=== PATIENT | male | born 1950 | race Caucasian/White ===

== ENCOUNTER 2022-07-25 08:33 | Outpatient (OUT) | payer MEDICARE, OTHER, SELFPAY ==
[2022-07-25 09:06] LABS: Bilirubin Urine NEGATIVE (NEGATIVE); Blood Urine NEGATIVE (NEGATIVE); Clarity Urine CLEAR (CLEAR); Color Urine LT. YELLOW (YELLOW); Glucose Urine UA >=1000 mg/dL (NEGATIVE); Ketones Urine NEGATIVE (NEGATIVE); Leukocyte Esterase Urine NEGATIVE (NEGATIVE); Nitrite Urine NEGATIVE (NEGATIVE); Protein Urine NEGATIVE (NEG/TRACE); Urobilinogen Urine 0.2 EU/dL (0.2-1.0); pH Urine 5.5 (5.0-9.0)
[2022-07-25 09:16] LABS: RBC Urine NONE SEEN #/HPF (0-2); WBC Urine NONE SEEN #/HPF (NONE SEEN)
[2022-07-25 09:17] LABS: Bacteria Urine NONE SEEN #/HPF (NONE SEEN); Crystals Seen? None Seen #/HPF (None Seen); Mucus Urine NONE SEEN (NONE SEEN); Squamous Epithelial Cell Urine RARE #/LPF (NONE/RARE)
[2022-07-25 09:18] LABS: Cast Seen? NONE SEEN #/LPF (NONE SEEN)
[2022-07-25 09:19] LABS: Urine Culture Indicated NO
[2022-07-25 09:22] LABS: Basophils Percent Auto 0.6 % (0.2-2.0); Eosinophils Absolute Auto 0.2 10^3/uL (0.0-0.7); Eosinophils Percent Auto 3.5 % (0.9-7.0); Hematocrit 46.8 % (42.0-54.0); Hemoglobin 15.8 g/dL (14.0-18.0); Immature Granulocytes Abs Auto 0.02 10^3/uL (0.00-0.03); Immature Granulocytes Pct Auto 0.3 % (0.0-0.5); Lymphocytes Absolute Auto 1.8 10^3/uL (1.2-3.8); Lymphocytes Percent Auto 27.2 % (20.5-60.0); Mean Corpuscular HGB Conc 33.8 g/dL (29.9-35.2); Mean Corpuscular Hemoglobin 28.4 pg (25.9-34.0); Mean Corpuscular Volume 84.2 fL (80.0-94.0); Mean Platelet Volume 9.5 fL (9.5-13.5); Monocytes Absolute Auto 0.5 10^3/uL (0.3-0.8); Monocytes Percent Auto 7.9 % (1.7-12.0); Neutrophils Percent Auto 60.5 % (43.0-75.0); Platelet Count 220 10^3/uL (150-450); Red Blood Count 5.56 10^6/uL (4.70-6.10); Red Cell Distribution Width 13.3 % (11.0-15.0); White Blood Count 6.6 10^3/uL (4.0-11.0)
[2022-07-25 09:33] LABS: Microalbumin Urine Random <1.3 mg/dL (<=30.0)
[2022-07-25 10:07] LABS: Alanine Aminotransferase 29 U/L (16-63); Albumin Globulin Ratio 0.9; Albumin Level 3.8 g/dL (3.4-5.0); Alkaline Phosphatase 62 U/L (46-116); Anion Gap 12.7; Aspartate Amino Transferase 14 U/L (15-37); BUN Creatinine Ratio 19.2; Bilirubin Total 1.4 mg/dL (0.2-1.0); Calcium 9.2 mg/dL (8.5-10.1); Carbon Dioxide 27.6 mmol/L (21.0-32.0); Chloride 103 mmol/L (98-107); Chol HDL Ratio 2.9; Cholesterol 144 mg/dL (<=200); Estimated GFR (African America >60 (>=60); Estimated GFR (Non-African Ame >60 (>=60); Glucose 155 mg/dL (74-106); HDL Cholesterol 49 mg/dL (40-60); Potassium 4.3 mmol/L (3.5-5.1); Sodium 139 mmol/L (136-145); Total Protein 7.8 g/dL (6.4-8.2); Triglycerides 120 mg/dL (<=150)
[2022-07-25 10:27] LABS: Estimated Average Glucose 194 mg/dL; Glycohemoglobin A1C 8.4 % (4.5-6.2)
== END 2022-07-25 08:34 ==
PROVIDERS: PCP Nurse Practitioner; Visit Provider Nurse Practitioner
DX: N40.1 Benign prostatic hyperplasia with lower urinary tract symptoms (principal); E78.2 Mixed hyperlipidemia; E11.9 Type 2 diabetes mellitus without complications
CPT/HCPCS: 36415; 80053; 80061; 81001; 82043; 83036; 84153; 85025; G0103

== ENCOUNTER 2023-03-13 10:33 | Outpatient (OUT) | payer MEDICARE, OTHER, SELFPAY ==
[2023-03-13 11:35] LABS: Estimated Average Glucose 177 mg/dL; Glycohemoglobin A1C 7.8 % (4.5-6.2)
[2023-03-13 12:16] LABS: Anion Gap 13.4; BUN Creatinine Ratio 14.1; Calcium 8.6 mg/dL (8.5-10.1); Carbon Dioxide 26.6 mmol/L (21.0-32.0); Chloride 104 mmol/L (98-107); Estimated GFR (African America >60 (>=60); Estimated GFR (Non-African Ame >60 (>=60); Glucose 195 mg/dL (74-106); Sodium 140 mmol/L (136-145)
== END 2023-03-13 10:34 | disposition home or self-care (01) ==
LOC: LAB 10:35
PROVIDERS: PCP Nurse Practitioner; Visit Provider Nurse Practitioner
DX: E11.319 Type 2 diabetes mellitus with unspecified diabetic retinopathy without macular edema (principal); Z79.4 Long term (current) use of insulin
CPT/HCPCS: 36415; 80048; 83036

== ENCOUNTER 2023-08-06 09:22 | Outpatient (OUT) | payer MEDICARE, OTHER, SELFPAY ==
--- OUTSIDE RECORDS SUMMARY | 2023-08-06 09:32 | XMS_ITS | CCD ---
Author Organization [facility] Inform ion Partnership [facility] Care Team Providers Care Verse Writer Name Role Phone MAYCO JUAREZRAJI BERNAL Referring Unavaila ble AICHHOLZ, CARTRIDGE ASSEMBLING MACHINE ADJUSTER HERMINIA Primary Care Unavailable AICHHOLZ, CARTRIDGE ASSEMBLING MACHINE ADJUSTER HERMINIA Admitting Unavailable DR RADHA MORGAN V Consulting Unavailable AICHHOLZ, CARTRIDGE ASSEMBLING MACHINE ADJUSTER HERMINIA Attending Unavailable AICHHOLZ, CARTRIDGE ASSEMBLING MACHINE ADJUSTER HERMINIA Consulting Unavailable AICHHOLZ, CARTRIDGE ASSEMBLING MACHINE ADJUSTER HERMINIA Primary Care Unavailable AICHHOLZ, CARTRIDGE ASSEMBLING MACHINE ADJUSTER HERMINIA Admitting Unavailable AICHHOLZ, CARTRIDGE ASSEMBLING MACHINE ADJUSTER HERMINIA Attending Unavailable AICHHOLZ, CARTRIDGE ASSEMBLING MACHINE ADJUSTER HERMINIA Consulting Unavailable AICHHOLZ, CARTRIDGE ASSEMBLING MACHINE ADJUSTER HERMINIA Consulting Unavailable AICHHOLZ, CARTRIDGE ASSEMBLING MACHINE ADJUSTER HERMINIA Primary Care Unavailable AICHHOLZ, CARTRIDGE ASSEMBLING MACHINE ADJUSTER HERMINIA Admitting Unavailable AICHHOLZ, CARTRIDGE ASSEMBLING MACHINE ADJUSTER HERMINIA Attending Unavailable Piotr KYLE, Lion Lea Attending Unavailab eduin Guevara MD, Leslie Dorantes Primary Care Unavailab eduin Mcnair MD, Olu Primary Care Provider [phone] AICHHOLZ, HERMINIA Attending Unavailable AICHHOLZ, HERMINIA Attending Unavailable Allergies Allergy Classification Reported Allergen(s) Allergy Type Date of Onset Reaction(s) Facility (1 source) Doxycycline Drug Allergy 02-18-2023 [facility] Medications Current Medications Medication Drug Class(es) Dates Sig (Normalized) Sig (Original) aspirin 81 mg delayed release oral tablet (1 source) Platelet Aggregation Inhibitor, Nonsteroidal Anti-inflammatory Drug take 1 tablet by mouth in the morning aspirin (ASPIR) 81 MG EC tablet Take 1 tablet by mouth in the morning. 0 Active atorvastatin 20 mg oral tablet (1 source) HMG-CoA Reductase Inhibitor take 1 tablet by mouth once daily atorvastatin (Lipitor) 20 MG tablet Take 1 tablet by mouth 1 (one) time each day at the same time 0 Active Continuous Blood Gluc Sensor (Dexcom G6 Sensor) [facility] [place] (1 source) Start: 03-11-2023 End: 04-10-2023 Continuous Blood Gluc Sensor (Dexcom G6 Sensor) [facility] [place] Indications: Type 2 diabetes mellitus with retinopathy, with long-term current use of insulin, macular edema presence unspecified, unspecified laterality, unspecified retinopathy severity (CMS/HCC) 1 Device by Other route Daily as needed (blood sugar checks as directed) 3 each 12 03/11/2023 04/10/2023 Active Continuous Blood Gluc Transmit (Dexcom G6 transmitter) misc (1 source) Start: 01-07-2023 Continuous Blood Gluc Transmit (Dexcom G6 transmitter) [facility] [place] Indications: Type 2 diabetes mellitus with unspecified complications (CMS/HCC) Transmitter for 90 days use 1 each 4 01/07/2023 Active dapagliflozin 10 mg oral tablet (1 source) Sodium-Glucose Cotransporter 2 Inhibitor take 1 tablet by mouth in the morning dapagliflozin (Farxiga) 10 MG Take 1 tablet by mouth in the morning. 0 Active 0.5 ml dulaglutide 1.5 mg/ml auto-injector (1 source) GLP-1 Receptor Agonist End: 03-20-2023 dulaglutide (Trulicity) 0.75 MG/0.5ML solution pen-injector Inject 1 each under the skin 1 (one) time per week 0 03/20/2023 Discontinued (Ineffective) dulaglutide (Trulicity) 3 MG/0.5ML solution pen-injector (1 source) inject 3 mg by subcutaneous injection every week dulaglutide (Trulicity) 3 MG/0.5ML solution pen-injector Indications: Type 2 Diabetes Mellitus Inject 3 mg under the skin 1 (one) time per week 0 Active fluticasone propionate 0.05 mg/actuat metered dose nasal spray (1 source) Corticosteroid take 2 spray(s) nasal route in the morning fluticasone (Flonase) 50 MCG/ACT nasal spray Administer 2 sprays into each nostril in the morning. 0 Active ibuprofen 600 mg oral tablet (1 source) Nonsteroidal Anti-inflammatory Drug Start: 02-04-2023 End: 05-05-2023 take 1 tablet by mouth every eight hours for pain ibuprofen 600 MG tablet Indications: Other chronic pain Take 1 tablet (600 mg) by mouth every 8 (eight) hours if needed for mild pain Take with food 270 tablet 0 02/04/2023 05/05/2023 Active 3 ml insulin glargine 100 unt/ml pen injector (1 source) Insulin Analog Start: 01-07-2023 End: 04-07-2023 inject 45 [IU] by subcutaneous injection in the morning insulin glargine (Lantus SoloStar) 100 UNIT/ML pen Indications: Type 2 diabetes mellitus with unspecified complications (CMS/HCC) Inject 45 Units under the skin in the morning and 45 Units before bedtime. 27 each 1 01/07/2023 04/07/2023 Active losartan potassium 50 mg oral tablet (1 source) Angiotensin 2 Receptor Rodriguez take 1 tablet by mouth once daily losartan (Cozaar) 50 MG tablet Take 1 tablet by mouth 1 (one) time each day at the same time 0 Active pantoprazole 40 mg delayed release oral tablet (1 source) Proton Pump Inhibitor take 1 tablet by mouth once daily Protonix 40 MG EC tablet Take 1 tablet by mouth 1 (one) time each day at the same time 0 Active tamsulosin hydrochloride 0.4 mg oral capsule (1 source) alpha-Adrenergic Rodriguez Start: 02-01-2023 End: 05-02-2023 take 2 capsules by mouth every twenty-four hours at bedtime tamsulosin (Flomax) 0.4 MG 24 hr capsule Indications: Benign prostatic hyperplasia with urinary frequency Take 2 capsules (0.8 mg) by mouth at bedtime 180 capsule 1 02/01/2023 05/02/2023 Active Problems Active Problems Problem Classification Problem Date Documented Da te Episodic/Chronic Conditions associated with dizziness or vertigo (1 source) Dizziness and giddiness; Translations: [DIZZINESS AND GIDDINESS] Onset: 05-15-2022 Episodic Diabetes mellitus with complications (6 sources) Type 2 diabetes mellitus with unspecified complications; Translations: [Type 2 diabetes mellitus with hyperglycemia] Onset: 05-24-2021 Chronic Diabetes mellitus without complication (1 source) Type 2 diabetes mellitus without complications; Translations: [TYPE 2 DM WITHOUT COMPLICATIONS] Onset: 05-15-2022 Chronic Disorders of lipid metabolism (1 source) Mixed hyperlipidemia; Translations: [MIXED HYPERLIPIDEMIA] Onset: 05-15-2022 Chronic Esophageal disorders (1 source) Gastro-esophageal reflux disease with esophagitis; Translations: [GERD with esophagitis] Onset: 02-26-2023 02-26-2023 Chronic Essential hypertension (5 sources) Essential (primary) hypertension; Translations: [Essential hypertension] Onset: 05-09-2022 Chronic Hyperplasia of prostate (1 source) Urinary frequency due to benign prostatic hypertrophy; Translations: [Benign prostatic hyperplasia with lower urinary tract symptoms] Onset: 02-01-2023 02-01-2023 Chronic Other nervous system disorders (1 source) Chronic pain; Translations: [Other chronic pain] Onset: 02-04-2023 02-04-2023 Chronic Other nutritional; endocrine; and metabolic disorders (1 source) Body mass index 30+ - obesity; Translations: [Body mass index (BMI) 33.0-33.9, adult] Onset: 02-26-2023 02-26-2023 Chronic Other upper respiratory infections (4 sources) Chronic sinusitis, unspecified; Translations: [CHRONIC SINUSITIS UNSPECIFIED] Onset: 05-21-2021 Chronic Past or Other Problems Problem Classification Problem Date Documented Da te Episodic/Chronic Other aftercare (1 source) snf (current) use of insulin; Translations: [SKILLED NURSING CURRENT USE OF INSULIN] Onset: 12-02-2021 Episodic Other screening for suspected conditions (not mental disorders or infectious disease) (1 source) Encounter for screening for malignant neoplasm of prostate; Translations: [ENC SCREEN MALIG NEOPLASM PROSTATE] Onset: 05-24-2021 Episodic Results Test Name Value Interpretation Reference Range Facility US CAROTID ART BILon 023 US CAROTID ART MAURICE EXAMINATION: US CAROTID ART MAURICE HISTORY: Essential hypertension COMPARISON: No relevant comparison available. TECHNIQUE: Duplex Doppler ultrasound analysis of carotid and vertebral arteries. . Bilateral carotid arterial duplex examination was performed using B-mode, color flow and spectral analysis. Carotid stenosis is reported according to validated velocity parameters, similar to NASCET criteria. FINDINGS: RIGHT CAROTID ARTERY Mild atherosclerotic plaque Subclavian: PSV: 210.7 cm/s cm/s EDV: 10.3 cm/s cm/s CCA: Prox: PSV: 146.0 cm/s cm/s EDV: 23.3 cm/s cm/s Mid: PSV: 109.2 cm/s cm/s EDV: 17.3 cm/s cm/s Distal: PSV: 100.8 cm/s cm/s EDV: 17.3 cm/s cm/s BULB: PSV: 47.2 cm/s cm/s EDV: 10.0 cm/s cm/s ICA: Prox: PSV: 87.5 cm/s cm/s EDV: 19.7 cm/s cm/s Mid: PSV: 101.6 cm/s cm/s EDV: 20.8 cm/s cm/s Distal: PSV: 101.5 cm/s cm/s EDV: 28.9 cm/s cm/s ECA: PSV: 139.0 cm/s cm/s EDV: 0.0 cm/s cm/s VERTEBRAL: PSV: 44.9 cm/s cm/s EDV: 13.1 cm/s cm/s ICA/CCA ratio: PSV: 0.7 EDV: 0.9 LEFT CAROTID ARTERY Mild atherosclerotic plaque Subclavian: PSV: 164.1 cm/s cm/s EDV: 0.0 cm/s CCA: Prox: PSV: 158.4 cm/s cm/s EDV: 22.0 cm/s Mid: PSV: 138.9 cm/s cm/s EDV: 19.2 cm/s Distal: PSV: 102.7 cm/s cm/s EDV: 19.2 cm/s BULB: PSV: 151.0 cm/s cm/s EDV: 20.9 cm/s ICA: Prox: PSV: 150.1 cm/s cm/s EDV: 26.9 cm/s Mid: PSV: 90.3 cm/s cm/s EDV: 22.4 cm/s Distal: PSV: 93.5 cm/s cm/s EDV: 24.1 cm/s ECA: PSV: 162.4 cm/s cm/s EDV: 13.7 cm/s VERTEBRAL: PSV: 55.5 cm/s cm/s EDV: 12.8 cm/s ICA/CCA ratio: PSV: 1.0 EDV: 0.9 IMPRESSION: 0-49% flow stenosis bilateral internal carotid arteries Spectral Doppler US Thresholds (Reference: Victorino EG, et al. Radiology 2000; 214:247-252) Stenosis (%) PSV (cm/sec) VICA/VCCA 0-49 <150 <2.5 50-69 150-225 2.5-4.0 >70 >225 >4.0 Electronically authenticated by: RADHA MORGAN Date: 2022-05-09 15:35 Normal [facility] GLYCOHEMOGLOBIN A1Con 2021 ADA RECOMMENDATION SEE BELOW Normal [facility] Comment on above: Result Comment: ADA RECOMMENDED LIMIT 4.0 - 6.0 ADA THERAPEUTIC TARGET < 7.0 ACTION SUGGESTED > 7.0 Performed By: #### A 1C #### [facility] [address] [place] [address] Dr. Mau Alberts Glucose [Mass/Vol] 180 mg/dL Normal [facility] Comment on above: Performed By: #### A 1C #### [facility] [address] [place] [address] Dr. Mau Alberts HbA1c (Bld) [Mass fraction] 7.9 % Critically high 4.5-6.2 [facility] Comment on above: Performed By: #### A 1C #### [facility] [address] [place] [address] Dr. Mau Alberts PROF 14(COMP METB)on 022 Albumin [Mass/Vol] 3.6 g/dL Normal 3.4-5.0 [facility] Comment on above: Performed By: #### C MP #### [facility] [address] [place] [address] Dr. Mau Alberts Albumin/Globulin [Mass ratio] 0.9 {ratio} Normal [facility] Comment on above: Performed By: #### C MP #### [facility] [address] [place] [address] Dr. Mau Alberts ALP [Catalytic activity/Vol] 63 U/L Normal 46-116 [facility] Comment on above: Performed By: #### C MP #### [facility] [address] [place] [address] Dr. Mau Alberts ALT [Catalytic activity/Vol] 30 U/L Normal 16-63 [facility] Comment on above: Performed By: #### C MP #### [facility] [address] [place] [address] Dr. Mau Alberts Anion gap [Moles/Vol] 9.2 mmol/L Normal [facility] Comment on above: Performed By: #### C MP #### [facility] [address] [place] [address] Dr. Mau Alberts AST [Catalytic activity/Vol] 20 U/L Normal 15-37 [facility] Comment on above: Performed By: #### C MP #### [facility] [address] [place] [address] Dr. Mau Alberts Bilirubin [Mass/Vol] 0.9 mg/dL Normal 0.2-1.0 [facility] Comment on above: Performed By: #### C MP #### [facility] [address] [place] [address] Dr. Mau Alberts Calcium [Mass/Vol] 8.9 mg/dL Normal 8.5-10.1 [facility] Comment on above: Performed By: #### C MP #### [facility] [address] [place] [address] Dr. Mau Alberts Chloride [Moles/Vol] 104 mmol/L Normal 98-107 [facility] Comment on above: Performed By: #### C MP #### [facility] [address] [place] [address] Dr. Mau Alberts CO2 [Moles/Vol] 29.2 mmol/L Normal 21.0-32.0 [facility] Comment on above: Performed By: #### C MP #### [facility] [address] [place] [address] Dr. Mau Alberts Creatinine [Mass/Vol] 0.93 mg/dL Normal 0.70-1.30 [facility] Comment on above: Performed By: #### C MP #### [facility] [address] [place] [address] Dr. Mau Alberts EGFR-AF FAROESE >60 Normal >=60 [facility] Comment on above: Performed By: #### C MP #### [facility] [address] [place] [address] Dr. Mau Alberts EGFR-NON AF FAROESE >60 Normal >=60 [facility] Comment on above: Performed By: #### C MP #### [facility] [address] [address] [address] Mau Alberts Globulin (S) [Mass/Vol] 3.8 g/dL Normal [facility] Comment on above: Performed By: #### C MP #### [facility] [address] [place] [address] Dr. Mau Alberts Glucose [Mass/Vol] 161 mg/dL Critically high 74-106 [facility] Comment on above: Performed By: #### C MP #### [facility] [address] [place] [address] Dr. Mau Alberts Potassium [Moles/Vol] 4.4 mmol/L Normal 3.5-5.1 [facility] Comment on above: Performed By: #### C MP #### [facility] [address] [place] [address] Dr. Mau Alberts Protein [Mass/Vol] 7.4 g/dL Normal 6.4-8.2 [facility] Comment on above: Performed By: #### C MP #### [facility] [address] [place] [address] Dr. Mau Alberts Sodium [Moles/Vol] 138 mmol/L Normal 136-145 [facility] Comment on above: Performed By: #### C MP #### [facility] [address] [place] [address] Dr. Mau Alberts Urea nitrogen [Mass/Vol] 14.0 mg/dL Normal 7.0-18.0 [facility] Comment on above: Performed By: #### C MP #### [facility] [address] [place] [address] Dr. Mau Alberts Urea nitrogen/Creatinine [Mass ratio] 15.1 mg/mg Normal [facility] Comment on above: Performed By: #### C MP #### [facility] [address] [place] [address] Dr. Mau Alberts CBC AUTO DIFFon 05-21-2021 BASO # 0.0 103/ul Normal 0.0-0.1 [facility] Comment on above: Performed By: #### C BC #### [facility] [address] [place] [address] Dr. Mau Alberts Basophils/100 WBC (Bld) 0.4 % Normal 0.2-2.0 [facility] Comment on above: Performed By: #### C BC #### [facility] [address] [place] [address] Dr. Mau Alberts EO # 0.2 103/ul Normal 0.0-0.7 [facility] Comment on above: Performed By: #### C BC #### [facility] [address] [place] [address] Dr. Mau Alberts Eosinophils/100 WBC (Bld) 3.2 % Normal 0.9-7.0 [facility] Comment on above: Performed By: #### C BC #### [facility] [address] [place] [address] Dr. Mau Alberts Erythrocyte distribution width (RBC) [Ratio] 13.0 % Normal 11.0-15.0 [facility] Comment on above: Performed By: #### C BC #### [facility] [address] [place] [address] Dr. Mau Alberts Hematocrit (Bld) [Volume fraction] 47.1 % Normal 42.0-54.0 [facility] Comment on above: Performed By: #### C BC #### [facility] [address] [place] [address] Dr. Mau Alberts Hemoglobin (Bld) [Mass/Vol] 15.1 g/dL Normal 14.0-18.0 [facility] Comment on above: Performed By: #### C BC #### [facility] [address] [place] [address] Dr. Mau Alberts IG # 0.02 10e3/ul Normal 0.00-0.03 [facility] Comment on above: Performed By: #### C BC #### [facility] [address] [place] [address] Dr. Mau Alberts IG % 0.3 % Normal 0.0-0.5 [facility] Comment on above: Performed By: #### C BC #### [facility] [address] [place] [address] Dr. Mau Alberts LYMPH # 2.0 103/ul Normal 1.2-3.8 [facility] Comment on above: Performed By: #### C BC #### [facility] [address] [place] [address] Dr. Mau Alberts Lymphocytes/100 WBC (Bld) 26.9 % Normal 20.5-60.0 [facility] Comment on above: Performed By: #### C BC #### [facility] [address] [place] [address] Dr. Mau Alberts MANUAL DIFF REQ NO Normal [facility] Comment on above: Performed By: #### C BC #### [facility] [address] [place] [address] Dr. Mau Alberts MCH (RBC) [Entitic mass] 28.1 pg Normal 25.9-34.0 [facility] Comment on above: Performed By: #### C BC #### [facility] [address] [place] [address] Dr. Mau Alberts MCHC (RBC) [Mass/Vol] 32.1 g/dL Normal 29.9-35.2 [facility] Comment on above: Performed By: #### C BC #### [facility] [address] [place] [address] Dr. Mau Alberts MCV (RBC) [Entitic vol] 87.7 fL Normal 80.0-94.0 [facility] Comment on above: Performed By: #### C BC #### [facility] [address] [place] [address] Dr. Mau Alberts MONO # 0.5 103/ul Normal 0.3-0.8 [facility] Comment on above: Performed By: #### C BC #### [facility] [address] [place] [address] Dr. Mau Alberts Monocytes/100 WBC (Bld) 7.0 % Normal 1.7-12.0 [facility] Comment on above: Performed By: #### C BC #### [facility] [address] [address] [address] Mau Alberts NEUT # 4.6 103/ul Normal 1.4-6.5 [facility] Comment on above: Performed By: #### C BC #### [facility] [address] [place] [address] Dr. Mau Alberts Neutrophils/100 WBC (Bld) 62.2 % Normal 43.0-75.0 [facility] Comment on above: Performed By: #### C BC #### [facility] [address] [place] [address] Dr. Mau Alberts Platelet mean volume (Bld) [Entitic vol] 10.2 fL Normal 9.5-13.5 [facility] Comment on above: Performed By: #### C BC #### [facility] [address] [place] [address] Dr. Mau Alberts PLT 215 103/ul Normal 150-450 [facility] Comment on above: Performed By: #### C BC #### [facility] [address] [place] [address] Dr. Mau Alberts RBC 5.37 106/ul Normal 4.70-6.10 [facility] Comment on above: Performed By: #### C BC #### [facility] [address] [place] [address] Dr. Mau Alberts WBC 7.4 103/ul Normal 4.0-11.0 [facility] Comment on above: Performed By: #### C BC #### [facility] [address] [place] [address] Dr. Mau Alberts GLYCOHEMOGLOBIN A1Con 2021 ADA RECOMMENDATION ADA THERAPEUTIC TARGET 6.0 - 7.0 ACTION SUGGESTED > 7.0 Normal [facility] Comment on above: Performed By: #### A 1C #### [facility] [address] [place] [address] Dr. Mau Alberts Glucose [Mass/Vol] 180 mg/dL Normal [facility] Comment on above: Performed By: #### A 1C #### [facility] [address] [place] [address] Dr. Mau Alberts HbA1c (Bld) [Mass fraction] 7.9 % Critically high <=6.0 [facility] Comment on above: Performed By: #### A 1C #### [facility] [address] [place] [address] Dr. Mau Alberts MICROALBUMIN, RAND URon 04- mALB <1.3 Normal <=30.0 [facility] Comment on above: Performed By: #### M ALBR #### [facility] [address] [place] [address] Dr. Mau Alberts PROF 14(COMP METB)on 022 Albumin [Mass/Vol] 3.8 g/dL Normal 3.4-5.0 [facility] Comment on above: Performed By: #### C MP #### [facility] [address] [place] [address] Dr. Mau Alberts Albumin/Globulin [Mass ratio] 1.1 {ratio} Normal [facility] Comment on above: Performed By: #### C MP #### [facility] [address] [place] [address] Dr. Mau Alberts ALP [Catalytic activity/Vol] 60 U/L Normal 46-116 [facility] Comment on above: Performed By: #### C MP #### [facility] [address] [place] [address] Dr. Mau Alberts ALT [Catalytic activity/Vol] 29 U/L Normal 16-63 [facility] Comment on above: Performed By: #### C MP #### [facility] [address] [place] [address] Dr. Mau Alberts Anion gap [Moles/Vol] 9.5 mmol/L Normal [facility] Comment on above: Performed By: #### C MP #### [facility] [address] [place] [address] Dr. Mau Alberts AST [Catalytic activity/Vol] 23 U/L Normal 15-37 [facility] Comment on above: Performed By: #### C MP #### [facility] [address] [place] [address] Dr. Mau Alberts Bilirubin [Mass/Vol] 1.7 mg/dL Critically high 0.2-1.3 [facility] Comment on above: Performed By: #### C MP #### [facility] [address] [address] [address] Mau Alberts Calcium [Mass/Vol] 8.5 mg/dL Normal 8.5-10.1 [facility] Comment on above: Performed By: #### C MP #### [facility] [address] [address] [address] Mau Alberts Chloride [Moles/Vol] 103 mmol/L Normal 98-107 [facility] Comment on above: Performed By: #### C MP #### [facility] [address] [address] [address] Mau Alberts CO2 [Moles/Vol] 30.7 mmol/L Critically high 22.0-30.0 [facility] Comment on above: Performed By: #### C MP #### [facility] [address] [address] [address] Mau Alberts Creatinine [Mass/Vol] 0.93 mg/dL Normal 0.66-1.25 [facility] Comment on above: Performed By: #### C MP #### [facility] [address] [place] [address] Dr. Mau Alberts EGFR-AF FAROESE >60 Normal >=60 [facility] Comment on above: Performed By: #### C MP #### [facility] [address] [address] [address] Mau Alberts EGFR-NON AF FAROESE >60 Normal >=60 [facility] Comment on above: Performed By: #### C MP #### [facility] [address] [address] [address] Mau Alberts Globulin (S) [Mass/Vol] 3.6 g/dL Normal [facility] Comment on above: Performed By: #### C MP #### [facility] [address] [address] [address] Mau Alberts Glucose [Mass/Vol] 124 mg/dL Critically high 74-106 [facility] Comment on above: Performed By: #### C MP #### [facility] [facility] [address] [address] [address] Mau Alberts Potassium [Moles/Vol] 4.2 mmol/L Normal 3.4-5.0 [facility] Comment on above: Performed By: #### C MP #### [facility] [address] [address] [address] Mau Alberts Protein [Mass/Vol] 7.4 g/dL Normal 6.1-8.2 [facility] Comment on above: Performed By: #### C MP #### [facility] [address] [address] [address] Mau Alberts Sodium [Moles/Vol] 139 mmol/L Normal 137-145 [facility] Comment on above: Performed By: #### C MP #### [facility] [address] [address] [address] Mau Alberts Urea nitrogen [Mass/Vol] 16.0 mg/dL Normal 7.0-18.0 [facility] Comment on above: Performed By: #### C MP #### [facility] [address] [address] [address] Mau Alberts Urea nitrogen/Creatinine [Mass ratio] 17.2 mg/mg Normal [facility] Comment on above: Performed By: #### C MP #### [facility] [address] [address] [address] Mau Alberts UA RANDOM W/MICROSCOPICon BACTERIA NONE SEEN Normal NONE SEEN [facility] Comment on above: Performed By: #### U AMIC #### [facility] [address] [address] [address] Mau Alberts Bilirubin Ql (U) Negative Normal NEGATIVE [facility] Comment on above: Performed By: #### U AMIC #### [facility] [address] [address] [address] Mau Alberts CAST NONE SEEN Normal NONE SEEN [facility] Comment on above: Performed By: #### U AMIC #### [facility] [address] [address] [address] Mau Alberts Clarity (U) CLEAR Normal CLEAR [facility] Comment on above: Performed By: #### U AMIC #### [facility] [address] [address] [address] Mau Alberts Color (U) YELLOW Normal YELLOW [facility] Comment on above: Performed By: #### U AMIC #### [facility] [address] [address] [address] Mau Alberts Crystals LM Nom (Urine sed) NONE SEEN Normal NONE SEEN [facility] Comment on above: Performed By: #### U AMIC #### [facility] [address] [address] [address] Mau Alberts Epithelial cells LM Ql (Urine sed) RARE Normal NONE SEEN /RARE [facility] Comment on above: Performed By: #### U AMIC #### [facility] [address] [place] [address] Dr. Mau Alberts Glucose Ql (U) >1000 Abnormal NEGATIVE [facility] Comment on above: Performed By: #### U AMIC #### [facility] [address] [place] [address] Dr. Mau Alberts Hemoglobin Ql (U) Negative Normal NEGATIVE [facility] Comment on above: Performed By: #### U AMIC #### [facility] [address] [place] [address] Dr. Mau Alberts Ketones Ql (U) Negative Normal NEGATIVE [facility] Comment on above: Performed By: #### U AMIC #### [facility] [address] [place] [address] Dr. Mau Alberts LEUKOCYTES Negative Normal NEGATIVE [facility] Comment on above: Performed By: #### U AMIC #### [facility] [address] [place] [address] Dr. Mau Alberts MUCOUS NONE SEEN Normal NONE SEEN [facility] Comment on above: Performed By: #### U AMIC #### [facility] [address] [address] [address] Mau Alberts Nitrite Ql (U) Negative Normal NEGATIVE [facility] Comment on above: Performed By: #### U AMIC #### [facility] [address] [address] [address] Mau Alberts pH (U) 6.0 [pH] Normal 5-9 [facility] Comment on above: Performed By: #### U AMIC #### [facility] [address] [address] [address] Mau Alberts RBC NONE SEEN Abnormal 0-2 [facility] Comment on above: Performed By: #### U AMIC #### [facility] [address] [address] [address] Mau Alberts SPEC GRAVITY 1.015 Normal 1.005-<=1.025 [facility] Comment on above: Performed By: #### U AMIC #### [facility] [address] [address] [address] Mau Alberts UA PROTEIN Negative Normal NEGATIVE/ TRACE [facility] Comment on above: Performed By: #### U AMIC #### [facility] [address] [place] [address] Dr. Mau Alberts Urobilinogen Qn (U) 0.2 {Britton'U}/dL Normal 0.2 - 1. 0 [facility] Comment on above: Performed By: #### U AMIC #### [facility] [address] [place] [address] Dr. Mau Alberts WBC NONE SEEN Normal NONE SEEN [facility] Comment on above: Performed By: #### U AMIC #### [facility] [address] [place] [address] Dr. Mau Alberts NM PET/CT SKULL-THIGH INITon 04-10-2018 NM PET/CT SKULL-THIGH INIT * * *Final Report* * * DATE OF EXAM: Apr 10 2018 11:29AM NRN [id number] - NM PET/CT SKULL-THIGH INIT / PROCEDURE REASON: [place] * * * * Physician Interpretation * * * * RESULT: WHOLE (OR REGIONAL) BODY PET-CT SCAN CLINICAL HISTORY: Positive colorectal cancer screening. ear pain. INDICATION: Initial treatment strategy. TECHNIQUE: PET-CT scan: Approximately 60 minutes following the IV administration of F-18 FDG (14.3 mCi of F-18 FDG), PET and non contrast CT images were acquired from the top of skull through proximal thigh. PET images were reconstructed with and without attenuation correction using attenuation coefficients. The blood glucose level before FDG injection is 131 mg/dL CT Radiation dose: Integrated Dose-length product (DLP) for this visit = 308 mGy*cm. CT Dose Reduction Employed: Automatic exposure control used (AED) COMPARISON: FDG PET-CT: None CORRELATION: None RESULTS: Head and Neck: No evidence of focal uptake to suggest FDG avid neoplastic process. Tiny bilateral cervical lymph nodes with minimal FDG uptake, likely benign. Symmetric uptake in the bilateral tonsil regions is probably physiological versus inflammatory process. Chest: No evidence of focal uptake to suggest FDG avid neoplastic process. Subcentimeter mediastinal, subcarinal and hilar lymph nodes with mild FDG uptake, probably benign. The largest is measuring 7 x 4 mm in the right paratracheal regions with Max SUV 3.3. There is 4 mm subpleural nodule in the right upper lobe, too small to characterize. Small area of atelectasis in the right upper lobe posteriorly. Left lower lobe atelectasis and scarring. Hiatal hernia. Abdomen and Pelvis: No evidence of focal uptake to suggest FDG avid neoplastic process. No significant anatomical abnormality to the limits of low dose noncontrast CT scan. Extremities/Skeleton : No evidence of focal uptake to suggest FDG avid neoplastic process. Degenerative arthritic changes. More obvious focal uptake in the left hip joint and the right ischium is compatible with tendinitis. IMPRESSION: 1. HEAD and NECK: No evidence of focal uptake to suggest FDG avid neoplastic process.. 2. CHEST: No evidence of focal uptake to suggest FDG avid neoplastic process. Tiny right lung nodule. 3. ABDOMEN/PELVIS: No evidence of focal uptake to suggest FDG avid neoplastic process.. 4. EXTREMITIES/SKELETON : No evidence of focal uptake to suggest FDG avid neoplastic process.. Transcribe Date/Time: Apr 10 2018 1:16P Dictated by: DEEPIKA CHAUDHRY MD This examination was interpreted and the report reviewed and electronically signed by: DEEPIKA CHAUDHRY MD on Apr 10 2018 1:28PM EST Thank you for allowing us to participate in the care of your patient. Should there be any questions regarding this interpretation, please call [phone]. If you are unable to reach us at the number above, please feel free to contact [facility] at [phone]. [id number] CN Normal [facility] PROGRESSon 04-10-2018 Protein mass conc HNO ID: [id number] Author: Thao Carty Service: (none) Author Type: (none) Type: Progress Notes Filed: 04/10/2018 10:40 AM Note Text: RADIOLOGY SERVICE PROGRESS NOTE SERVICE DATE: 04/10/2018 SERVICE TIME: 9:54 AM PATIENT IDENTITY VERIFICATION COMPLETED USING TWO (2) METHODS: Patient confirmed name and Date of verbally. PATIENT GENDER DATA: .male : No ALLERGIES: Reviewed and unchanged MEDICATIONS REVIEWED: No PATIENT RELEVANT IMPLANT DATA REVIEWED: Not Applicable CREATININE: No results found for: CREAT, EGFROTH, EGFRAA P.O.C.T. RESULTS: POC done: Yes, See Lab Tab April 10, [address] PERFORMED: No IV SITE: Ambulatory: A peripheral IV was started in the Left antecubital site with a Angio cath: 22 gauge. POST EXAM PIV STATUS: Discontinued PROCEDURE TYPE: NM INJECT: PET/CT HEAD, NECK, BODY SCAN. 14.3 mCi F18 FDG. No other medications given.. ADMINISTRATION TIME: 0953 PATIENT DISCHARGED TO: Ambulatory patient, left NM department area. Thao Carty A Diagnostic radioactive procedure has taken place, with no further precautions necessary other than routine body substance precautions. More information regarding radiation safety can be found using this link: [email or web address] SIGNATURE: Nisreen Berkowitz LPN PATIENT NAME: Hector Florian DATE: April 10, 2018 TIME: 9:54 AM PAGER/CONTACT #: Normal [facility] MR-MRI IACS WO/W CON IMPORTo n 03-27-2018 MR-MRI IACS WO/W CON IMPORT Images were obtained outside of [facility] [id number] CN Normal [facility] Encounters Encounter Date Encounter Type Care Provider Facility Start: 06-02-2023 End: 06-02-2023 ambulatory HERMINIA FARFAN Not Available Start: 03-20-2023 Refill Herminia Alfredoannie INSURANCE COMMISSIONER Work Phone: [facility] Start: 02-26-2023 End: 02-26-2023 ambulatory HERMINIA FARFAN Not Available Start: 12-24-2022 End: 12-25-2022 ambulatory Lion Saldaña MD Facility:[facility] Start: 05-09-2022 End: 05-10-2022 ambulatory JASON FARFAN Facility:[facility] Start: 11-28-2021 End: 11-29-2021 ambulatory JASON FARFAN Facility:[facility] Start: 05-21-2021 End: 05-22-2021 ambulatory JASON FARFAN Facility:[facility] Start: 04-10-2018 End: 04-16-2018 Patient encounter procedure ODALIS JUAREZ [facility] Procedures Date Procedure Procedure Detail Performing Clinician Start: 05-21-2021 PSA screening JASON FARFAN Comment on above: Performed By: #### P [facility] #### [facility] [address] [place] [address] Dr. Mau Alberts Plan of Treatment Date Care Activity Detail Author Start: 04-08-2025 Screening for malign ant neoplasm of colon [facility] Start: 07-26-2023 Urine screening for protein Diabetes: Urine Protein Screening [facility] Start: 06-02-2023 End: 06-02-2023 Patient encounter procedure 06/02/2023 9:40 AM EDT Office Visit [facility] [address] [place] [address] Herminia Farfan NP [address] [place] [id number] [facility] Start: 04-19-2023 Glaucoma screening Diabetes: R etinopathy Screening [facility] Start: 10-25-2022 Hemoglobin A1c measurement Diabetes: Hemoglobin A1C [facility] Start: 1950 Screening for malign ant neoplasm of colon [facility] Immunizations Immunization Date Immunization Notes Care Provider Miky lisbeth 11-20-2022 influenza virus vacc ine, unspecified formulation Herminia Farfan NP Work Phone: [facility] Payers Date Payer Category Payer Medicare MEDICARE MEDICAR E RAILROAD [id number] 2017-Present [employer] MEDICARE [address] [address] [place] [address] Medicare [id number] 2017 Unknown 1959 Medicare [id number] 1959 Unknown [id number] 1952 Unknown [id number] 1952 Unknown [id number] 1952 Unknown [id number] 1952 Unknown [id number] 1952 Unknown [id number] 1952 Unknown [id number] Social History Date Type Detail Facility Start: 02-18-2023 Tobacco smoking status MOIS Ex-smoke r [facility] End: 02-11-1988 History of tobacco use Current smoker [facility] End: 02-11-1988 History of tobacco use Cigarette Smoker [facility] Start: 02-26-2023 Alcohol intake Current drinke r of alcohol (finding) [facility] Start: 02-20-2023 End: 02-26-2023 History of Social function [facility] Start: 02-20-2023 End: 02-26-2023 Humiliation, Afraid, Rape, and Kick questionnaire [HARK] [facility] Within the last year , have you been afraid of your partner or ex-partner? No [facility] How often do you att end bahai or jehovah's witness services? Patient refused [facility] Are you now , , , , never or living with a partner? [facility] How often to you hav e a drink containing alcohol? Monthly or less [facility] How many standard dr inks containing alcohol do you have on a typical day? 1 or 2 [facility] Do you feel stress - tense, restless, nervous, or anxious, or unable to sleep at night because your mind is troubled all the time - these days [OSQ] Not at all [facility] (I/We) worried wheth er (my/our) food would run out before (I/we) got money to buy more. Never true [facility] Start: 02-18-2023 Alcohol Comment caffeine 1-2 c ups per day [facility] Start: 1950 Sex Assigned At Male [facility] Start: 02-20-2023 Gender identity Identifies as male gender (finding) [facility] Medical Equipment Procedure Code Equipment Code Equipment Origin al Text Equipment Identifier Dates 1 each by Other route if needed (for checking blood sugars) [id number] Start: 03-11-2023 End: 06-19-2023 Summary Purpose Family History No Family History Records FoundNo Family History Records FoundNo Family History Records FoundNo Family History Records Found Advance Directives No Advanced Directives Records FoundNo Advanced Directives Records FoundNo Advanced Directives Records FoundNo Advanced Directives Records Found Additional Source Comments (unrecognized sect ion and content) No Status Records FoundNo Status Records FoundNo Status Records FoundNo Status Records Found INFORMATION SOURCE (unrecogn ized section and content) DATE CREATED AUTHOR 04/17/2018 [facility] DATE CREATED AUTHOR AUTHOR'S ORGANIZ ATION 05/17/2022 [facility] DATE CREATED AUTHOR AUTHOR'S ORGANIZ ATION 03/03/2023 [facility] DATE CREATED AUTHOR AUTHOR'S ORGANIZ ATION 06/02/2023 [facility] [employer] Care Teams (unrecognized sec tion and content) Verse Writer Relationship Specialty Start Date End Date Olu Mcnair MD PCP - General Family Medicine 07/31/22 FOR RECORDS PERTAINING TO PATIENTS WHO ARE OR HAVE BEEN ENROLLED IN A CHEMICAL DEPENDENCY/SUBSTANCEABUSE PROGRAM, SOME INFORMATION MAY BE OMITTED. This clinical summary was aggregated from multiple sources. Caution should be exercised in using it in the provision of clinical care. This summary normalizes information from multiple sources, and as a consequence, information in this document may materially change the coding, format and clinical context of patient data. In addition, data may be omitted in some cases. CLINICAL DECISIONS SHOULD BE BASED ON THE PRIMARY CLINICAL RECORDS. [email or web address]. provides no warranty or guarantee of the accuracy or completeness of information in this document.
[2023-08-06 10:09] LABS: Bilirubin Urine NEGATIVE (NEGATIVE); Blood Urine NEGATIVE (NEGATIVE); Clarity Urine CLEAR (CLEAR); Color Urine LT. YELLOW (YELLOW); Glucose Urine UA >=1000 mg/dL (NEGATIVE); Ketones Urine NEGATIVE (NEGATIVE); Leukocyte Esterase Urine NEGATIVE (NEGATIVE); Nitrite Urine NEGATIVE (NEGATIVE); Protein Urine NEGATIVE (NEG/TRACE); Urobilinogen Urine 0.2 EU/dL (0.2-1.0)
[2023-08-06 10:14] LABS: Basophils Absolute Auto 0.1 10^3/uL (0.0-0.1); Basophils Percent Auto 0.7 % (0.2-2.0); Eosinophils Absolute Auto 0.3 10^3/uL (0.0-0.7); Eosinophils Percent Auto 3.7 % (0.9-7.0); Hematocrit 44.5 % (42.0-54.0); Hemoglobin 15.2 g/dL (14.0-18.0); Immature Granulocytes Abs Auto 0.01 10^3/uL (0.00-0.03); Immature Granulocytes Pct Auto 0.1 % (0.0-0.5); Lymphocytes Percent Auto 30.4 % (20.5-60.0); Mean Corpuscular HGB Conc 34.2 g/dL (29.9-35.2); Mean Corpuscular Hemoglobin 28.5 pg (25.9-34.0); Mean Corpuscular Volume 83.3 fL (80.0-94.0); Mean Platelet Volume 9.6 fL (9.5-13.5); Monocytes Absolute Auto 0.4 10^3/uL (0.3-0.8); Monocytes Percent Auto 6.1 % (1.7-12.0); Neutrophils Absolute Auto 3.9 10^3/uL (1.4-6.5); Platelet Count 235 10^3/uL (150-450); Red Blood Count 5.34 10^6/uL (4.70-6.10); White Blood Count 6.7 10^3/uL (4.0-11.0)
[2023-08-06 10:19] LABS: Urine Microscopic Indicated NO
[2023-08-06 10:28] LABS: Creatinine Urine Random 93.07 mg/dL (20.00-300.00); Microalbum Creatinine Ratio Ur 13.9 mg/g (0.0-29.9); Microalbumin Urine Random <1.3 mg/dL (<=30.0)
[2023-08-06 11:11] LABS: Estimated Average Glucose 177 mg/dL; Glycohemoglobin A1C 7.8 % (4.5-6.2)
[2023-08-06 12:48] LABS: Alanine Aminotransferase 25 U/L (16-63); Albumin Level 3.7 g/dL (3.4-5.0); Alkaline Phosphatase 71 U/L (46-116); Anion Gap 10.6; Aspartate Amino Transferase 13 U/L (15-37); BUN Creatinine Ratio 18.9; Bilirubin Total 1.7 mg/dL (0.2-1.0); Calcium 9.2 mg/dL (8.5-10.1); Carbon Dioxide 28.2 mmol/L (21.0-32.0); Chloride 103 mmol/L (98-107); Chol HDL Ratio 2.9; Cholesterol 147 mg/dL (<=200); Estimated GFR (African America >60 (>=60); Estimated GFR (Non-African Ame >60 (>=60); Globulin 3.8 g/dL; Glucose 165 mg/dL (74-106); HDL Cholesterol 50 mg/dL (40-60); Potassium 3.8 mmol/L (3.5-5.1); Sodium 138 mmol/L (136-145); Total Protein 7.5 g/dL (6.4-8.2); Triglycerides 130 mg/dL (<=150)
== END 2023-08-06 09:23 | disposition home or self-care (01) ==
LOC: LAB 09:23
PROVIDERS: PCP Nurse Practitioner; Visit Provider Nurse Practitioner
DX: K21.00 Gastro-esophageal reflux disease with esophagitis, without bleeding (principal); I10 Essential (primary) hypertension; E11.319 Type 2 diabetes mellitus with unspecified diabetic retinopathy without macular edema; Z79.4 Long term (current) use of insulin; E78.2 Mixed hyperlipidemia
CPT/HCPCS: 36415; 80053; 80061; 81003; 82043; 82570; 83036; 85025

== ENCOUNTER 2023-08-28 07:24 | Outpatient (OUT) | payer MEDICARE, OTHER, SELFPAY ==
--- OUTSIDE RECORDS SUMMARY | 2023-08-28 07:26 | XMS_ITS | CCD ---
Author Organization [facility] Inform ion Partnership [facility] Care Team Providers Care Reproduction Order Processor Name Role Phone MAYCO JUAREZRAJI BERNAL Referring Unavaila ble AICHHOLZ, AIRCRAFT SYSTEMS REPAIRER HERMINIA Primary Care Unavailable AICHHOLZ, AIRCRAFT SYSTEMS REPAIRER HERMINIA Admitting Unavailable DR RADHA MORGAN V Consulting Unavailable AICHHOLZ, AIRCRAFT SYSTEMS REPAIRER HERMINIA Attending Unavailable AICHHOLZ, AIRCRAFT SYSTEMS REPAIRER HERMINIA Consulting Unavailable AICHHOLZ, AIRCRAFT SYSTEMS REPAIRER HERMINIA Primary Care Unavailable AICHHOLZ, AIRCRAFT SYSTEMS REPAIRER HERMINIA Admitting Unavailable AICHHOLZ, AIRCRAFT SYSTEMS REPAIRER HERMINIA Attending Unavailable AICHHOLZ, AIRCRAFT SYSTEMS REPAIRER HERMINIA Consulting Unavailable AICHHOLZ, AIRCRAFT SYSTEMS REPAIRER HERMINIA Consulting Unavailable AICHHOLZ, AIRCRAFT SYSTEMS REPAIRER HERMINIA Primary Care Unavailable AICHHOLZ, AIRCRAFT SYSTEMS REPAIRER HERMINIA Admitting Unavailable AICHHOLZ, AIRCRAFT SYSTEMS REPAIRER HERMINIA Attending Unavailable Piotr KYLE, Lion Lea Attending Unavailab eduin Guevara MD, Leslie Dorantes Primary Care Unavailab eduin Mcnair MD, Olu Primary Care Provider AICHHOLZ, HERMINIA Attending Unavailable AICHHOLZ, HERMINIA Attending Unavailable Allergies Allergy Classification Reported Allergen(s) Allergy Type Date of Onset Reaction(s) Facility (1 source) Doxycycline Drug Allergy 02-18-2023 [facility] Medications Current Medications Medication Drug Class(es) Dates [...] Continuous Blood Gluc [place]com [place] [facility] [place] Start: 03-11-2023 End: 04-10-2023 Continuous Blood Gluc Sensor (Dexcom G6 Sensor[place] [facility] [place] Indications: Type 2 diabetes mellitus with retinopathy, with long-term current use of insulin, macular edema presence unspecified, unspecified laterality, unspecified retinopathy severity (CMS/HCC) 1 Device by Other route Daily as needed (blood sugar checks as directed) 3 each 12 03/11/2023 04/10/2023 Active Continuous Blood Gluc Transmit (Dexcom G6 transmitter) misc (1 source) Start: 01-07-2023 Continuous Blood Gluc Transmit (Dexcom G6 transmitter[place] [facility] [place]ications: Type 2 diabetes mellitus with unspecified [...] Da te Episodic/Chronic Other aftercare (1 source) residential (current) use of insulin; Translations: [ALF CURRENT USE OF INSULIN] Onset: 12-02-2021 Episodic [...] by: RADHA MORGAN Date: 2022-05-09 15:35 Normal [facility] GLYCOHEMOGLOBIN A1Con 2021 ADA RECOMMENDATION SEE BELOW Normal [facility] Comment on above: Result Comment: ADA RECOMMENDED LIMIT 4.0 - 6.0 ADA THERAPEUTIC TARGET < 7.0 ACTION SUGGESTED > 7.0 Performed By: #### A 1C #### [facility] [address] [place] [address] Dr. Mau Alberts Glucose [Mass/Vol] 180 mg/dL Normal [facility] Comment on above: Performed By: #### A 1C #### [facility] [address] [place] [address] Dr. Mau Alberts HbA1c (Bld) [Mass fraction] 7.9 % Critically high 4.5-6.2 [facility] Comment on above: Performed By: #### A 1C #### [facility] [address] [place] [address] Dr. Mau Alberts PROF 14(COMP METB)on 022 Albumin [Mass/Vol] 3.6 g/dL Normal 3.4-5.0 [facility] Comment on above: Performed By: #### C MP #### [facility] [address] [place] [address] Dr. Mau Alberts Albumin/Globulin [Mass ratio] 0.9 {ratio} Normal [facility] Comment on above: Performed By: #### C MP #### [facility] [address] [place] [address] Dr. Mau Alberts ALP [Catalytic activity/Vol] 63 U/L Normal 46-116 [facility] Comment on above: Performed By: #### C MP #### [facility] [address] [place] [address] Dr. Mau Alberts ALT [Catalytic activity/Vol] 30 U/L Normal 16-63 [facility] Comment on above: Performed By: #### C MP #### [facility] [address] [place] [address] Dr. Mau Alberts Anion gap [Moles/Vol] 9.2 mmol/L Normal [facility] Comment on above: Performed By: #### C MP #### [facility] [address] [place] [address] Dr. Mau Alberts AST [Catalytic activity/Vol] 20 U/L Normal 15-37 [facility] Comment on above: Performed By: #### C MP #### [facility] [address] [place] [address] Dr. Mau Alberts Bilirubin [Mass/Vol] 0.9 mg/dL Normal 0.2-1.0 [facility] Comment on above: Performed By: #### C MP #### [facility] [address] [place] [address] Dr. Mau Alberts Calcium [Mass/Vol] 8.9 mg/dL Normal 8.5-10.1 [facility] Comment on above: Performed By: #### C MP #### [facility] [address] [place] [address] Dr. Mau Alberts Chloride [Moles/Vol] 104 mmol/L Normal 98-107 [facility] Comment on above: Performed By: #### C MP #### [facility] [address] [place] [address] Dr. Mau Alberts CO2 [Moles/Vol] 29.2 mmol/L Normal 21.0-32.0 [facility] Comment on above: Performed By: #### C MP #### [facility] [address] [place] [address] Dr. Mau Alberts Creatinine [Mass/Vol] 0.93 mg/dL Normal 0.70-1.30 [facility] Comment on above: Performed By: #### C MP #### [facility] [address] [place] [address] Dr. Mau Alberts EGFR-AF ARMENIAN >60 Normal >=60 [facility] Comment on above: Performed By: #### C MP #### [facility] [address] [place] [address] Dr. Mau Alberts EGFR-NON AF ARMENIAN >60 Normal >=60 [facility] Comment on above: Performed By: #### C MP #### [facility] [address] [address] [address] Mau Alberts Globulin (S) [Mass/Vol] 3.8 g/dL Normal [facility] Comment on above: Performed By: #### C MP #### [facility] [address] [place] [address] Dr. Mau Alberts Glucose [Mass/Vol] 161 mg/dL Critically high 74-106 [facility] Comment on above: Performed By: #### C MP #### [facility] [address] [place] [address] Dr. Mau Alberts Potassium [Moles/Vol] 4.4 mmol/L Normal 3.5-5.1 [facility] Comment on above: Performed By: #### C MP #### [facility] [address] [place] [address] Dr. Mau Alberts Protein [Mass/Vol] 7.4 g/dL Normal 6.4-8.2 [facility] Comment on above: Performed By: #### C MP #### [facility] [address] [place] [address] Dr. Mau Alberts Sodium [Moles/Vol] 138 mmol/L Normal 136-145 [facility] Comment on above: Performed By: #### C MP #### [facility] [address] [place] [address] Dr. Mau Alberts Urea nitrogen [Mass/Vol] 14.0 mg/dL Normal 7.0-18.0 [facility] Comment on above: Performed By: #### C MP #### [facility] [address] [place] [address] Dr. Mau Alberts Urea nitrogen/Creatinine [Mass ratio] 15.1 mg/mg Normal [facility] Comment on above: Performed By: #### C MP #### [facility] [address] [place] [address] Dr. Mau Alberts CBC AUTO DIFFon 05-21-2021 BASO # 0.0 103/ul Normal 0.0-0.1 [facility] Comment on above: Performed By: #### C BC #### [facility] [address] [place] [address] Dr. Mau Alberts Basophils/100 WBC (Bld) 0.4 % Normal 0.2-2.0 [facility] Comment on above: Performed By: #### C BC #### [facility] [address] [place] [address] Dr. Mau Alberts EO # 0.2 103/ul Normal 0.0-0.7 [facility] Comment on above: Performed By: #### C BC #### [facility] [address] [place] [address] Dr. Mau Alberts Eosinophils/100 WBC (Bld) 3.2 % Normal 0.9-7.0 [facility] Comment on above: Performed By: #### C BC #### [facility] [address] [place] [address] Dr. Mau Alberts Erythrocyte distribution width (RBC) [Ratio] 13.0 % Normal 11.0-15.0 [facility] Comment on above: Performed By: #### C BC #### [facility] [address] [place] [address] Dr. Mau Alberts Hematocrit (Bld) [Volume fraction] 47.1 % Normal 42.0-54.0 [facility] Comment on above: Performed By: #### C BC #### [facility] [address] [place] [address] Dr. Mau Alberts Hemoglobin (Bld) [Mass/Vol] 15.1 g/dL Normal 14.0-18.0 [facility] Comment on above: Performed By: #### C BC #### [facility] [address] [place] [address] Dr. Mau Alberts IG # 0.02 10e3/ul Normal 0.00-0.03 [facility] Comment on above: Performed By: #### C BC #### [facility] [address] [place] [address] Dr. Mau Alberts IG % 0.3 % Normal 0.0-0.5 [facility] Comment on above: Performed By: #### C BC #### [facility] [address] [place] [address] Dr. Mau Alberts LYMPH # 2.0 103/ul Normal 1.2-3.8 [facility] Comment on above: Performed By: #### C BC #### [facility] [address] [place] [address] Dr. Mau Alberts Lymphocytes/100 WBC (Bld) 26.9 % Normal 20.5-60.0 [facility] Comment on above: Performed By: #### C BC #### [facility] [address] [place] [address] Dr. Mau Alberts MANUAL DIFF REQ NO Normal [facility] Comment on above: Performed By: #### C BC #### [facility] [address] [place] [address] Dr. Mau Alberts MCH (RBC) [Entitic mass] 28.1 pg Normal 25.9-34.0 [facility] Comment on above: Performed By: #### C BC #### [facility] [address] [place] [address] Dr. Mau Alberts MCHC (RBC) [Mass/Vol] 32.1 g/dL Normal 29.9-35.2 [facility] Comment on above: Performed By: #### C BC #### [facility] [address] [place] [address] Dr. Mau Alberts MCV (RBC) [Entitic vol] 87.7 fL Normal 80.0-94.0 [facility] Comment on above: Performed By: #### C BC #### [facility] [address] [place] [address] Dr. Mau Alberts MONO # 0.5 103/ul Normal 0.3-0.8 [facility] Comment on above: Performed By: #### C BC #### [facility] [address] [place] [address] Dr. Mau Alberts Monocytes/100 WBC (Bld) 7.0 % Normal 1.7-12.0 [facility] Comment on above: Performed By: #### C BC #### [facility] [address] [address] [address] Mau Alberts NEUT # 4.6 103/ul Normal 1.4-6.5 [facility] Comment on above: Performed By: #### C BC #### [facility] [address] [place] [address] Dr. Mau Alberts Neutrophils/100 WBC (Bld) 62.2 % Normal 43.0-75.0 [facility] Comment on above: Performed By: #### C BC #### [facility] [address] [place] [address] Dr. Mau Alberts Platelet mean volume (Bld) [Entitic vol] 10.2 fL Normal 9.5-13.5 [facility] Comment on above: Performed By: #### C BC #### [facility] [address] [place] [address] Dr. Mau Alberts PLT 215 103/ul Normal 150-450 [facility] Comment on above: Performed By: #### C BC #### [facility] [address] [place] [address] Dr. Mau Alberts RBC 5.37 106/ul Normal 4.70-6.10 [facility] Comment on above: Performed By: #### C BC #### [facility] [address] [place] [address] Dr. Mau Alberts WBC 7.4 103/ul Normal 4.0-11.0 [facility] Comment on above: Performed By: #### C BC #### [facility] [address] [place] [address] Dr. Mau Alberts GLYCOHEMOGLOBIN A1Con 2021 ADA RECOMMENDATION ADA THERAPEUTIC TARGET 6.0 - 7.0 ACTION SUGGESTED > 7.0 Normal [facility] Comment on above: Performed By: #### A 1C #### [facility] [address] [place] [address] Dr. Mau Alberts Glucose [Mass/Vol] 180 mg/dL Normal [facility] Comment on above: Performed By: #### A 1C #### [facility] [address] [place] [address] Dr. Mau Alberts HbA1c (Bld) [Mass fraction] 7.9 % Critically high <=6.0 [facility] Comment on above: Performed By: #### A 1C #### [facility] [address] [place] [address] Dr. Mau Alberts MICROALBUMIN, RAND URon 04- mALB <1.3 Normal <=30.0 [facility] Comment on above: Performed By: #### M ALBR #### [facility] [address] [place] [address] Dr. Mau Alberts PROF 14(COMP METB)on 022 Albumin [Mass/Vol] 3.8 g/dL Normal 3.4-5.0 [facility] Comment on above: Performed By: #### C MP #### [facility] [address] [place] [address] Dr. Mau Alberts Albumin/Globulin [Mass ratio] 1.1 {ratio} Normal [facility] Comment on above: Performed By: #### C MP #### [facility] [address] [place] [address] Dr. Mau Alberts ALP [Catalytic activity/Vol] 60 U/L Normal 46-116 [facility] Comment on above: Performed By: #### C MP #### [facility] [address] [place] [address] Dr. Mau Alberts ALT [Catalytic activity/Vol] 29 U/L Normal 16-63 [facility] Comment on above: Performed By: #### C MP #### [facility] [address] [place] [address] Dr. Mau Alberts Anion gap [Moles/Vol] 9.5 mmol/L Normal [facility] Comment on above: Performed By: #### C MP #### [facility] [address] [place] [address] Dr. Mau Alberts AST [Catalytic activity/Vol] 23 U/L Normal 15-37 [facility] Comment on above: Performed By: #### C MP #### [facility] [address] [place] [address] Dr. Mau Alberts Bilirubin [Mass/Vol] 1.7 mg/dL Critically high 0.2-1.3 [facility] Comment on above: Performed By: #### C MP #### [facility] [address] [address] [address] Mau Alberts Calcium [Mass/Vol] 8.5 mg/dL Normal 8.5-10.1 [facility] Comment on above: Performed By: #### C MP #### [facility] [address] [address] [address] Mau Alberts Chloride [Moles/Vol] 103 mmol/L Normal 98-107 [facility] Comment on above: Performed By: #### C MP #### [facility] [address] [address] [address] Mau Alberts CO2 [Moles/Vol] 30.7 mmol/L Critically high 22.0-30.0 [facility] Comment on above: Performed By: #### C MP #### [facility] [address] [address] [address] Mau Alberts Creatinine [Mass/Vol] 0.93 mg/dL Normal 0.66-1.25 [facility] Comment on above: Performed By: #### C MP #### [facility] [address] [place] [address] Dr. Mau Alberts EGFR-AF ARMENIAN >60 Normal >=60 [facility] Comment on above: Performed By: #### C MP #### [facility] [address] [address] [address] Mau Alberts EGFR-NON AF ARMENIAN >60 Normal >=60 [facility] Comment on above: Performed By: #### C MP #### [facility] [address] [address] [address] Mau Alberts Globulin (S) [Mass/Vol] 3.6 g/dL Normal [facility] Comment on above: Performed By: #### C MP #### [facility] [address] [address] [address] Mau Alberts Glucose [Mass/Vol] 124 mg/dL Critically high 74-106 [facility] Comment on above: Performed By: #### C MP #### [facility] [address] [address] [address] Mau Alberts Potassium [Moles/Vol] 4.2 mmol/L Normal 3.4-5.0 [facility] Comment on above: Performed By: #### C MP #### [facility] [address] [address] [address] Mau Alberts Protein [Mass/Vol] 7.4 g/dL Normal 6.1-8.2 [facility] Comment on above: Performed By: #### C MP #### [facility] [address] [address] [address] Mau Alberts Sodium [Moles/Vol] 139 mmol/L Normal 137-145 [facility] Comment on above: Performed By: #### C MP #### [facility] [address] [address] [address] Mau Alberts Urea nitrogen [Mass/Vol] 16.0 mg/dL Normal 7.0-18.0 [facility] Comment on above: Performed By: #### C MP #### [facility] [address] [address] [address] Mau Alberts Urea nitrogen/Creatinine [Mass ratio] 17.2 mg/mg Normal [facility] Comment on above: Performed By: #### C MP #### [facility] [address] [address] [address] Mau Alberts UA RANDOM W/MICROSCOPICon BACTERIA NONE SEEN Normal NONE SEEN [facility] Comment on above: Performed By: #### U AMIC #### [facility] [address] [address] [address] Mau Alberts Bilirubin Ql (U) Negative Normal NEGATIVE [facility] Comment on above: Performed By: #### U AMIC #### [facility] [address] [address] [address] Mau Alberts CAST NONE SEEN Normal NONE SEEN [facility] Comment on above: Performed By: #### U AMIC #### [facility] [address] [address] [address] Mau Alberts Clarity (U) CLEAR Normal CLEAR [facility] Comment on above: Performed By: #### U AMIC #### [facility] [address] [address] [address] Mau Alberts Color (U) YELLOW Normal YELLOW [facility] Comment on above: Performed By: #### U AMIC #### [facility] [address] [address] [address] Mau Alberts Crystals LM Nom (Urine sed) NONE SEEN Normal NONE SEEN [facility] Comment on above: Performed By: #### U AMIC #### [facility] [address] [address] [address] Mau Alberts Epithelial cells LM Ql (Urine sed) RARE Normal NONE SEEN /RARE [facility] Comment on above: Performed By: #### U AMIC #### [facility] [address] [place] [address] Dr. Mau Alberts Glucose Ql (U) >1000 Abnormal NEGATIVE [facility] Comment on above: Performed By: #### U AMIC #### [facility] [address] [place] [address] Dr. Mau Alberts Hemoglobin Ql (U) Negative Normal NEGATIVE [facility] Comment on above: Performed By: #### U AMIC #### [facility] [address] [place] [address] Dr. Mau Alberts Ketones Ql (U) Negative Normal NEGATIVE [facility] Comment on above: Performed By: #### U AMIC #### [facility] [address] [place] [address] Dr. Mau Alberts LEUKOCYTES Negative Normal NEGATIVE [facility] Comment on above: Performed By: #### U AMIC #### [facility] [address] [place] [address] Dr. Mau Alberts MUCOUS NONE SEEN Normal NONE SEEN [facility] Comment on above: Performed By: #### U AMIC #### [facility] [address] [address] [address] Mau Alberts Nitrite Ql (U) Negative Normal NEGATIVE [facility] Comment on above: Performed By: #### U AMIC #### [facility] [address] [address] [address] Mau Alberts pH (U) 6.0 [pH] Normal 5-9 [facility] Comment on above: Performed By: #### U AMIC #### [facility] [address] [address] [address] Mau Alberts RBC NONE SEEN Abnormal 0-2 [facility] Comment on above: Performed By: #### U AMIC #### [facility] [address] [address] [address] Mau Alberts SPEC GRAVITY 1.015 Normal 1.005-<=1.025 [facility] Comment on above: Performed By: #### U AMIC #### [facility] [address] [address] [address] Mau Alberts UA PROTEIN Negative Normal NEGATIVE/ TRACE [facility] Comment on above: Performed By: #### U AMIC #### [facility] [address] [place] [address] Dr. Mau Alberts Urobilinogen Qn (U) 0.2 {Britton'U}/dL Normal 0.2 - 1. 0 [facility] Comment on above: Performed By: #### U AMIC #### [facility] [address] [place] [address] Dr. Mau Alberts WBC NONE SEEN Normal NONE SEEN [facility] Comment on above: Performed By: #### U AMIC #### [facility] [address] [place] [address] Dr. Mau Alberts NM PET/CT SKULL-THIGH INITon [...] any questions regarding this interpretation, please call [phone]. If you are unable to reach us at the number above, please feel free to contact [facility] at [phone]. [id number] CN Normal [facility] PROGRESSon 04-10-2018 Protein mass conc HNO ID: [id number] Author: Thao Carty Service: (none) Author Type: [...] 2018 TIME: 9:54 AM PAGER/CONTACT #: Normal [facility] MR-MRI IACS WO/W CON IMPORTo n 03-27-2018 MR-MRI IACS WO/W CON IMPORT Images were obtained outside of [facility] [id number] CN Normal [facility] Encounters Encounter Date Encounter Type Care Provider Facility Start: 06-02-2023 End: 06-02-2023 ambulatory HERMINIA FARFAN Not Available Start: 03-20-2023 Refill Herminia Alfredoannie [employer] Work Phone: [facility] Start: 02-26-2023 End: 02-26-2023 ambulatory HERMINIA FARFAN Not Available Start: 12-24-2022 End: 12-25-2022 ambulatory Lion Saldaña MD Facility:[facility] Start: 05-09-2022 End: 05-10-2022 ambulatory JASON FARFAN Facility:[facility] Start: 11-28-2021 End: 11-29-2021 ambulatory JASON FARFAN Facility:[facility] Start: 05-21-2021 End: 05-22-2021 ambulatory JASON FARFAN Facility:[facility] Start: 04-10-2018 End: 04-16-2018 Patient encounter procedure ODALIS JUAREZ [facility] Procedures Date Procedure Procedure Detail Performing Clinician Start: 05-21-2021 PSA screening JASON FARFAN Comment on above: Performed By: #### P [facility] #### [facility] [address] [place] [address] Dr. Mau Alberts Plan of Treatment Date Care Activity Detail Author Start: 04-08-2025 Screening for malign ant neoplasm of colon [facility] Start: 07-26-2023 Urine screening for protein Diabetes: Urine Protein Screening [facility] Start: 06-02-2023 End: 06-02-2023 Patient encounter procedure 06/02/2023 9:40 AM EDT Office Visit [facility] [address] [place] [address] Herminia Farfan NP [address] [place] [id number] [facility] Start: 04-19-2023 Glaucoma screening Diabetes: R etinopathy [...] Category Payer Medicare MEDICARE MEDICAR E [employer]RO[employer] [id number] 2017-Present [employer]IC[employer] [address] [address] [place] [address] Medicare [id number] 2017 Unknown 1959 Medicare [id number] 1959 Unknown [id number] 1952 Unknown [id number] 1952 Unknown [id number] 1952 Unknown [id number] 1952 Unknown [id number] 1952 Unknown [id number] 1950 Unknown [id number] Social History Date Type Detail Facility Start: 02-18-2023 Tobacco smoking status [facility] Ex-smoke r [facility] Healthcare End: 02-11-1988 [...] Healthcare How often do you att end sikhism or yarsanism services? Patient refused [facility] Are you [...] route if needed (for checking blood sugars) [id number] Start: 03-11-2023 End: 06-19-2023 Summary Purpose Family [...] section and content) DATE CREATED AUTHOR 04/17/2018 [facility] DATE CREATED AUTHOR AUTHOR'S ORGANIZ ATION 05/17/2022 [facility] DATE CREATED AUTHOR AUTHOR'S ORGANIZ ATION 03/03/2023 [facility] DATE CREATED AUTHOR AUTHOR'S ORGANIZ ATION 06/02/2023 [facility] EPIC Care Teams (unrecognized sec tion and content) Reproduction Order Processor Relationship Specialty Start Date End Date Olu [...] BE BASED ON THE PRIMARY CLINICAL RECORDS. [employer] [facility]. provides no warranty or guarantee of the accuracy or completeness of information in this document.
--- NOTE | 2023-08-28 07:28 | US_ITS ---
[address] [address] Patient Name: SHRADDHA GARCIA MRN: [id number] date: 1950 Sex: M Assigned Patient Location: US Current Patient Location: US Accession/Order Number: [id number] Exam Date: 08/28/2023 07:30 Report Date: 08/28/2023 08:39 At the request of: EYAL ROLAND Procedure: US right upper quadrant EXAMINATION: US right upper quadrant HISTORY: Serum total bilirubin elevated R17 COMPARISON: No relevant comparison available. TECHNIQUE: Transabdominal evaluation of the right upper quadrant. FINDINGS: LIVER: Fatty infiltration. No focal lesion. PORTAL VEIN: Duplex Doppler demonstrates normal hepatopetal flow pattern with flow velocity averaging 29 cm/s. GALLBLADDER: No visible gallstones, wall thickening, or pericholecystic free fluid. Negative sonographic Montalvo's sign. BILIARY: No abnormal dilation or stones. Common bile duct diameter is within normal limits. PANCREAS: No visible mass, abnormal atrophy, or duct dilation. KIDNEY: No hydronephrosis. No visible mass or stones. Size: 11.3 x 5.9 x 5.3 cm US/US right upper quadrant IMPRESSION: 1. Fatty infiltration of the liver. Otherwise unremarkable right upper quadrant. Electronically authenticated by: YARON CHAPMAN Date: 08/28/2023 08:39
== END 2023-08-28 07:25 | disposition home or self-care (01) ==
LOC: US 07:24
PROVIDERS: PCP Nurse Practitioner; Visit Provider Nurse Practitioner
DX: R17 Unspecified jaundice (principal)
CPT/HCPCS: 76705

== ENCOUNTER 2023-09-29 12:09 | Outpatient (OUT) | payer MEDICARE, OTHER, SELFPAY ==
--- NOTE | 2023-09-29 12:16 | XR_ITS ---
The [address] [address] Patient Name: SHRADDHA GARCIA MRN: [id number] date: 1950 Sex: M Assigned Patient Location: [facility] Current Patient Location: Accession/Order Number: [id number] Exam Date: 09/29/2023 12:52 Report Date: 10/01/2023 05:02 At the request of: EYAL ROLAND Procedure: XR knee RT 3V PROCEDURE: XR knee RT 3V HISTORY: Acute Pain Of Right Knee M25.561 COMPARISON: None. FINDINGS: BONES:Slight narrowing of the medial joint space. Tiny periarticular degenerative osteophytes involving the patella. No fracture or dislocation. SOFT TISSUES:No visible soft tissue swelling. EFFUSION:None visible. OTHER: Negative. XR/XR knee RT 3V IMPRESSION: 1. Minimal degenerative joint disease. 2. No acute bone abnormality or joint effusion. Electronically authenticated by: YARON CHAPMAN Date: 10/01/2023 05:02
== END 2023-09-29 12:10 | disposition home or self-care (01) ==
LOC: RAD 12:11
PROVIDERS: PCP Nurse Practitioner; Visit Provider Nurse Practitioner
DX: M25.561 Pain in right knee (principal)
CPT/HCPCS: 73562

== ENCOUNTER 2023-10-06 12:11 | Outpatient (OUT) | payer MEDICARE, OTHER, SELFPAY ==
[2023-10-06 12:24] LABS: Basophils Percent Auto 0.4 % (0.2-2.0); Hematocrit 43.7 % (42.0-54.0); Hemoglobin 14.9 g/dL (14.0-18.0); Immature Granulocytes Abs Auto 0.03 10^3/uL (0.00-0.03); Immature Granulocytes Pct Auto 0.6 % (0.0-0.5); Lymphocytes Absolute Auto 0.7 10^3/uL (1.2-3.8); Lymphocytes Percent Auto 13.1 % (20.5-60.0); Mean Corpuscular HGB Conc 34.1 g/dL (29.9-35.2); Mean Corpuscular Hemoglobin 28.7 pg (25.9-34.0); Mean Corpuscular Volume 84.2 fL (80.0-94.0); Mean Platelet Volume 8.8 fL (9.5-13.5); Monocytes Absolute Auto 0.5 10^3/uL (0.3-0.8); Monocytes Percent Auto 8.5 % (1.7-12.0); Neutrophils Absolute Auto 4.2 10^3/uL (1.4-6.5); Neutrophils Percent Auto 77.4 % (43.0-75.0); Platelet Count 177 10^3/uL (150-450); Red Blood Count 5.19 10^6/uL (4.70-6.10); Red Cell Distribution Width 12.7 % (11.0-15.0); White Blood Count 5.4 10^3/uL (4.0-11.0)
[2023-10-06 12:28] LABS: Bilirubin Urine NEGATIVE (NEGATIVE); Blood Urine TRACE-L (NEGATIVE); Clarity Urine CLEAR (CLEAR); Color Urine YELLOW (YELLOW); Glucose Urine UA >=1000 mg/dL (NEGATIVE); Ketones Urine 40 mg/dL (NEGATIVE); Leukocyte Esterase Urine NEGATIVE (NEGATIVE); Nitrite Urine NEGATIVE (NEGATIVE); Protein Urine NEGATIVE (NEG/TRACE); Specific Gravity Urine 1.015 (1.005-1.025); Urobilinogen Urine 0.2 EU/dL (0.2-1.0)
[2023-10-06 12:40] LABS: Bacteria Urine SMALL #/HPF (NONE SEEN); Mucus Urine NONE SEEN (NONE SEEN); Squamous Epithelial Cell Urine FEW #/LPF (NONE/RARE)
[2023-10-06 12:41] LABS: Urine Culture Indicated ALREADY ORDERED
[2023-10-06 12:42] LABS: Alanine Aminotransferase 29 U/L (16-63); Albumin Globulin Ratio 0.9; Albumin Level 3.3 g/dL (3.4-5.0); Alkaline Phosphatase 63 U/L (46-116); Anion Gap 13.1; Aspartate Amino Transferase 29 U/L (15-37); BUN Creatinine Ratio 14.3; Bilirubin Total 2.1 mg/dL (0.2-1.0); Calcium 8.9 mg/dL (8.5-10.1); Carbon Dioxide 24.7 mmol/L (21.0-32.0); Chloride 98 mmol/L (98-107); Estimated GFR (African America >60 (>=60); Estimated GFR (Non-African Ame >60 (>=60); Globulin 3.7 g/dL; Glucose 213 mg/dL (74-106); Potassium 3.8 mmol/L (3.5-5.1); Sodium 132 mmol/L (136-145)
== END 2023-10-06 12:12 | disposition home or self-care (01) ==
LOC: LAB 12:13
PROVIDERS: PCP Nurse Practitioner; Visit Provider Nurse Practitioner
DX: R19.7 Diarrhea, unspecified (principal); R50.9 Fever, unspecified
CPT/HCPCS: 36415; 80053; 81001; 85025; 87086